=== PATIENT | female | born 1980 | race Asian ===

== ENCOUNTER 2016-10-01 08:57 | Emergency (ER) | payer OTHER ==
[~2016-10-01] VITALS: Ht 154.9 cm; Wt 48.5 kg
[2016-10-01] MEDS ORDERED: CYCL10TA2 PO (09:36)
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
[2016-10-01] MEDS ORDERED: IBUPROFEN 400 MG TABLET. PO ONE (09:45)
[2016-10-01] MEDS ORDERED: ACETAMINOPHEN 325 MG TABLET. PO ONE (09:45)
[2016-10-01 10:05] VITALS: BP 103/67
== END 2016-10-01 10:10 | disposition home or self-care (01) ==
LOC: ER 08:57
DX: S16.1XXA Strain of muscle, fascia and tendon at neck level, initial encounter (principal); V89.2XXA Person injured in unspecified motor-vehicle accident, traffic, initial encounter; Y93.89 Activity, other specified; Y92.89 Other specified places as the place of occurrence of the external cause; Y99.8 Other external cause status
CPT/HCPCS: 99283